=== PATIENT | female | born 1950 | race Caucasian/White ===

== ENCOUNTER 2016-11-09 05:03 | Inpatient (IN) | payer BC, MEDICARE ==
[~2016-11-09 05:03] MED LIST: AMIODARONE HCL200 M1 PO; AMITRIPTYLINE H25 M1 PO; AMITRIPTYLINE H25 MG; AMITRIPTYLINE H25 MG PO; ASPIRIN EC325 M1 PO; ASPIRIN325 MG; CALCIUM 600 +1 EACH PO; CATAPRES0.2 M1 PO; CIMZIA400 MG/21; CLONIDINE HCL0.1 MG PO; COLACE-T100 MG; DOCUSATE SODIU100 M; ENBREL50 MG/M1 SQ; ENTERIC COATED325 M PO; FOLIC ACID; FOLIC ACID1 M1 PO; FOLIC ACID1 MG PO; GLUCOPHAGE1000 M1 PO; HYDROCODONE/APA1 CAP; LIPITOR20 MG; LYRICA150 MG/CAP PO; METHOTREXATE2.5 M1 PO; METHOTREXATE2.5 MG PO; MIRALAX17 G2 PO; MOBIC15 MG; NORVASC5 MG; NORVASC5 MG PO; OMEGA 31 CAP; OMEGA 31 CAP PO; OMEGA-31000 M2 PO; PERCOCET 5/3251 TAB PO; PREDNISONE1 M1 PO; PREDNISONE10 MG PO; PREDNISONE5 M1 PO; PREDNISONE5 MG; PREDNISONE5 MG PO; PREMARIN0.3 MG; PREMARIN0.3 MG PO; PREVACID30 M2 PO; PREVACID30 MG; PREVACID30 MG PO; PRINIVIL10 M1 PO; STOOL SOFTENER; STOOL SOFTENER100 MG; STOOL SOFTENER100 MG PO; STOOL SOFTENER50 MG; SULFASALAZINE; TOPROL XL50 M1 PO; TOPROL XL50 MG; TOPROL XL50 MG PO; TRAMADOL HCL50 MG PO; TYLENOL EXTRA500 M1 PO; ULTRAM50 M1 PO; VALTREX
[2016-11-09 06:35] LABS: ANION GAP 13 mmol/L (0-20); BLOOD UREA NITROGEN 18 mg/dl (6-24); CALCIUM 9.2 mg/dl (8.5-10.5); CARBON DIOXIDE-VENOUS 25 mmol/L (22-32); CHLORIDE 106 mmol/l (96-110); CREATININE 0.96 mg/dl (0.50-1.10); GLUCOSE 141 mg/dL (70-110); POTASSIUM 3.8 mmol/L (3.7-5.1); SODIUM 140 mmol/L (135-145); eGFR VALUE FOR BLACK 71 mL/Min
[2016-11-10 14:24] LABS: BASO % 0.2 % (0-2); EOS % 0.3 % (0-7); HCT-HEMATOCRIT 28.5 % (34.0-49.0); HGB-HEMOGLOBIN 8.1 gm/dl (12.0-15.5); IMMATURE GRANULOCYTES ABSOLUTE 0.07 tho/cmm (0-0.03); IMMATURE GRANULOCYTES PERCENT 0.7 % (0-0.3); LYMPH % 15.1 % (20-45); LYMPH ABSOLUTE COUNT 1.6 tho/cmm (0.8-4.5); MCH (MEAN CORPUSCULAR HGB) 20.9 pg (28.0-32.0); MCV (MEAN CELL VOLUME) 73.6 fl (82.0-96.0); MEAN PLATELET VOLUME 9.5 cmc (9.4-12.4); MONO % 5.7 % (0-12); MONOCYTE ABSOLUTE COUNT 0.6 tho/cmm (0.0-1.2); NEUTROPHIL ABSOLUTE COUNT 8.4 tho/cmm (1.6-8.0); NEUTROPHIL-AUTOMATED 8.4 tho/cmm (1.6-8.0); PLATELET COUNT 251 tho/cmm (150-450); RED BLOOD COUNT 3.87 mil/cmm (4.00-5.20); RED CELL DISTRIBUTION WIDTH 18.2 % (12.4-16.4); WHITE BLOOD COUNT 10.7 tho/cmm (4.0-10.0)
[2016-11-10 14:30] LABS: MCHC MEAN CORPUSCULAR HGB CONC 28.4 % (32.0-36.0)
[2016-11-11] MEDS ORDERED: ROXICODONE5 M2 PO (10:17)
== END 2016-11-11 14:40 | DRG 470 ==
LOC: SHSB 05:03 → ORE 07:05 → PACU 10:06 → 5EA 11:20
PROVIDERS: ADMIT Orthopaedic Surgery
PROC: 0SRC0J9 Replacement of Right Knee Joint with Synthetic Substitute, Cemented, Open Approach (ICD-10-PCS; principal; 2016-11-11)
DX: M17.11 Unilateral primary osteoarthritis, right knee (principal); E11.22 Type 2 diabetes mellitus with diabetic chronic kidney disease; E11.40 Type 2 diabetes mellitus with diabetic neuropathy, unspecified; Z68.41 Body mass index [BMI] 40.0-44.9, adult; I48.91 Unspecified atrial fibrillation; I25.10 Atherosclerotic heart disease of native coronary artery without angina pectoris; I65.29 Occlusion and stenosis of unspecified carotid artery; I12.9 Hypertensive chronic kidney disease with stage 1 through stage 4 chronic kidney disease, or unspecified chronic kidney disease; N18.3 Chronic kidney disease, stage 3 (moderate); E78.5 Hyperlipidemia, unspecified; E66.9 Obesity, unspecified; M06.9 Rheumatoid arthritis, unspecified; Z79.82 Long term (current) use of aspirin; Z79.84 Long term (current) use of oral hypoglycemic drugs; Z79.52 Long term (current) use of systemic steroids; M79.7 Fibromyalgia
CPT/HCPCS: C1713; C1776; J0171; J0690; J1170; J1720; J1885; J2270; J2795; J3010; J7512